=== PATIENT | male | born 1995 | race Caucasian/White ===

== ENCOUNTER 2018-05-29 10:57 | Emergency (ER) | payer MEDICAID ==
[2018-05-29 11:08] VITALS: BP 123/76
--- NOTE | 2018-05-29 11:44 | XRAY Report ---
Reason: injury Procedure Date: 05/29/2018 Accession Number: [id number] / [id number] Procedure: XR - Foot 3 View LT CPT Code: FULL RESULT: EXAM: LEFT FOOT RADIOGRAPHY EXAM DATE: 05/29/2018 11:12 AM. CLINICAL HISTORY: Injury after fall on the heel of the foot. Pain. COMPARISON: No prior images of the left foot. Right foot radiographs 01/03/2011 XR FOOT COMPLETE MIN 3 VIEWS 01/03/2011 9:29 PM. TECHNIQUE: 3 nonweightbearing views. FINDINGS: Bones: Normal. No fractures or bone lesions. Joints: Normal. No subluxations. Soft Tissues: Normal. No soft tissue swelling. IMPRESSION: Normal foot radiography. No acute osseous abnormality. RADIA
[2018-05-29] MEDS ORDERED: HYDROcod/ACETAM 5/325 MG TABLET PO STA (12:12)
--- NOTE | 2018-05-29 12:13 | ED Physician Documentation ---
PD HPI LOWER EXT INJURY - Stated complaint Stated Complaint: L FOOT PAIN - Chief complaint Chief Complaint: Trauma Ext - History obtained from History obtained from: Patient - History of Present Illness PD HPI LOW EXT INJURY LOCATION: Left, Foot Type of injury: Fall (He was running yesterday and kind of jumped off a fence and landed on the left heel and has moderate to severe pain there with difficulty walking. No other injuries.) Review of Systems Constitutional: reports: Reviewed and negative Cardiac: reports: Reviewed and negative Respiratory: reports: Reviewed and negative PD PAST MEDICAL HISTORY - Past Medical History Cardiovascular: None Respiratory: None Endocrine/Autoimmune: None GI: None : None HEENT: None Psych: Anxiety Musculoskeletal: None Derm: None - Past Surgical History Past Surgical History: No - Present Medications Home Medications: Ambulatory Orders Medication Instructions Recorded Confirmed Hydrocodone/Acetaminophen 1 - 2 each PO Q6H PRN #10 tablet 05/29/18 [Hydrocodon-Acetaminophen 5-325] - Allergies Allergies/Adverse Reactions: Allergies Allergy/AdvReac Type Severity Reaction Status Date / Time No Known Drug Allergies Allergy Verified 05/29/18 11:09 - Social History Does the pt smoke?: No Smoking Status: Current some day smoker Does the pt drink ETOH?: No Does the pt have substance abuse?: No - Immunizations Immunizations are current?: No Immunizations: TDAP >10years/unknown - POLST Patient has POLST: No PD ED PE NORMAL - Vitals Vital signs reviewed: Yes - General General: Alert and oriented X 3, No acute distress - Extremities Extremities: Other (Focally tender over the left calcaneus without deformity or limited range of motion. No Achilles or plantar fascia tenderness.) - Neuro Neuro: Alert and oriented X 3, Normal speech Results - Vitals Vitals: Vital Signs - 24 hr 05/29/18 11:05 Temperature 37 C Heart Rate 68 Respiratory 16 Rate Blood Pressure 123/76 O2 Saturation 98 Oxygen O2 Source Room air - Rads (name of study) Xrays of Left foot and calcaneus Radiology: EMP read contemporaneously (negative) Departure - Departure Disposition: 01 Home, Self Care Clinical Impression: Contusion of left foot Condition: Good Record reviewed to determine appropriate education?: Yes Instructions: ED Contusion Foot Prescriptions: Hydrocodone/Acetaminophen [Hydrocodon-Acetaminophen 5-325] 1 - 2 each PO Q6H PRN #10 tablet PRN Reason: pain Comments: Recheck with your primary care physician in 1 week if not better, return for new or worsening symptoms. Do not drink or drive while taking narcotic pain medication. Note that many narcotic pain relievers also contain Tylenol/acetaminophen. Please ensure that your total dose of acetaminophen from all sources does not exceed 3 g (3000 mg) per day. You may get constipated while on this medication. Take a stool softener such as Colace twice a day while you are on it. Also add an [id number] laxative such as senna or MiraLAX on any day that you do not have a bowel movement. If you received a narcotic pain medication or sedative while in the emergency department, do not drive for the next 24 hours. Discharge Date/Time: 05/29/18 13:01
--- NOTE | 2018-05-29 12:41 | XRAY Report ---
Reason: foot inj Procedure Date: 05/29/2018 Accession Number: [id number] / [id number] Procedure: XR - Calcaneus LT CPT Code: FULL RESULT: EXAM: LEFT ANKLE RADIOGRAPHY EXAM DATE: 05/29/2018 12:21 PM. CLINICAL HISTORY: Foot injury. Fall. Left heel pain. COMPARISON: None. TECHNIQUE: 3 views. FINDINGS: Bones: Normal. No fractures or bone lesions. Joints: Normal. No effusion. No subluxations. The ankle mortise is normally aligned. Soft Tissues: Soft tissue edema. No radiopaque foreign bodies. IMPRESSION: 1. No acute osseous abnormalities. RADIA
== END 2018-05-29 13:01 | disposition home or self-care (01) ==
LOC: ED 10:57
DX: F17.200 Nicotine dependence, unspecified, uncomplicated (principal); S90.32XA Contusion of left foot, initial encounter; X50.9XXA Other and unspecified overexertion or strenuous movements or postures, initial encounter; Y93.39 Activity, other involving climbing, rappelling and jumping off
CPT/HCPCS: 73630; 73650; 99283; A9270

== ENCOUNTER 2018-06-18 16:41 | Outpatient (CLI) | payer MEDICAID | END 2018-06-18 16:42 | disposition EMS.NT | LOC: EMS 16:41 | PROVIDERS: ATTEND Surgery | DX: Z03.89 Encounter for observation for other suspected diseases and conditions ruled out (principal) ==

== ENCOUNTER 2018-10-31 13:00 | Emergency (ER) | payer MEDICAID ==
[2018-10-31 13:08] VITALS: BP 121/79
--- NOTE | 2018-10-31 13:15 | ED Physician Documentation ---
PD HPI UPPER EXT INJURY - Stated complaint Stated Complaint: HAND INJURY - Chief complaint Chief Complaint: Ext Problem - History obtained from History obtained from: Patient - History of Present Illness Location: Right, Hand Type of injury: Fall Where injury occurred: Home Timing - onset: Last night Timing - duration: Days (1) Timing - details: Abrupt onset Pain level max: 7 Pain level now: 5 Improved by: Rest, Ice, Immobilization Worsened by: Moving, Palpating Associated symptoms: Swelling, Discolored (Ecchymosis). No: Weakness, Numbness, Tingling Contributing factors: No: Anticoagulated Recently seen: Not recently seen - Additonal information Additional information: Patient is right-handed. States fell last night and injured the hand Review of Systems Neurologic: denies: Focal weakness, Numbness PD PAST MEDICAL HISTORY - Past Medical History Cardiovascular: None Respiratory: None Endocrine/Autoimmune: None GI: None : None HEENT: None Psych: Anxiety Musculoskeletal: None Derm: None - Past Surgical History Past Surgical History: No - Present Medications Home Medications: Ambulatory Orders Medication Instructions Recorded Confirmed Hydrocodone/Acetaminophen 1 - 2 each PO Q6H PRN #10 tablet 05/29/18 [Hydrocodon-Acetaminophen 5-325] Hydrocodone/Acetaminophen 1 - 2 each PO Q6H PRN #10 tablet 10/31/18 [Hydrocodon-Acetaminophen 5-325] Ibuprofen [Motrin] 800 mg PO Q8H PRN #30 tablet 10/31/18 - Allergies Allergies/Adverse Reactions: Allergies Allergy/AdvReac Type Severity Reaction Status Date / Time No Known Drug Allergies Allergy Verified 10/31/18 13:07 - Social History Does the pt smoke?: No Smoking Status: Never smoker Does the pt drink ETOH?: No Does the pt have substance abuse?: No - Immunizations Immunizations are current?: No Immunizations: TDAP >10years/unknown - POLST Patient has POLST: No PD ED PE NORMAL - Vitals Vital signs reviewed: Yes - General General: Alert and oriented X 3, No acute distress - HEENT HEENT: Moist mucous membranes - Derm Derm: Warm and dry - Extremities Extremities: Other (Dorsum of the right hand is mildly ecchymotic. Tender to palpation over the fourth and fifth metacarpals. No gross deformity. Full range of motion present. Neurovascular intact. Normal examination of the wrist and forearm) - Neuro Neuro: Alert and oriented X 3 Results - Vitals Vitals: Vital Signs - 24 hr 10/31/18 13:04 Temperature 36.9 C Heart Rate 73 Respiratory 16 Rate Blood Pressure 121/79 O2 Saturation 99 Oxygen O2 Source Room air - Rads (name of study) Right hand x-ray Radiology: Prelim report reviewed, EMP read contemporaneously, See rad report (Right fifth metacarpal fracture. Acute versus chronic) Procedures - Splint (location) Right hand Splint applied by: Tech Type of splint: Fiberglass, Ulnar gutter Other: Patient tolerated well, No complications, Neurovascular intact, Sling provided PD MEDICAL DECISION MAKING - ED course Complexity details: reviewed results, re-evaluated patient, considered differential, d/w patient ED course: Patient with a right fifth metacarpal fracture. Placed on a ulnar gutter splint. Given a sling. We will follow-up with orthopedics. Neurovascular intact patient counseled regarding signs and symptoms for which I believe and urgent re-evaluation would be necessary. Patient with good understanding of and agreement to plan and is comfortable going home at this time This document was made in part using voice recognition software. While efforts are made to proofread this document, sound alike and grammatical errors may occur. Departure - Departure Disposition: 01 Home, Self Care Clinical Impression: Fracture of fifth metacarpal bone of right hand Qualifiers: Encounter type: initial encounter Fracture type: closed Metacarpal location: unspecified portion of metacarpal Fracture alignment: nondisplaced Qualified Code(s): S62.306A - Unspecified fracture of fifth metacarpal bone, right hand, initial encounter for closed fracture Condition: Good Instructions: ED Fx Hand Closed Follow-Up: [facility] [Provider Group] - Within 1 week Prescriptions: Hydrocodone/Acetaminophen [Hydrocodon-Acetaminophen 5-325] 1 - 2 each PO Q6H PRN #10 tablet PRN Reason: pain Ibuprofen [Motrin] 800 mg PO Q8H PRN #30 tablet PRN Reason: PAIN &/OR FEVER Comments: Follow-up with orthopedics within 1 week for repeat evaluation. Wear the splint until then. You can use the sling for comfort. Elevate the hand. Ice may help as well. Do not drink alcohol or drive while on narcotic pain medicine. Note that many narcotic pain relievers also contain tylenol/acetaminophen. Please ensure that your total dose of acetaminophen from all sources does not exceed 3 grams (3000mg) per day. You may constipated on this medication, take a stool softener such as "Colace" twice a day while you are on it. Also recommend a bree-yjb-deuezjk laxative such as senna or MiraLAX any day that you do not have a bowel movement. If you received narcotic pain medication in the emergency department, do not drive or operate machinery for the next 24 hours. Discharge Date/Time: 10/31/18 14:42
--- NOTE | 2018-10-31 13:48 | XRAY Report ---
Reason: injury and now having pain Procedure Date: 10/31/2018 Accession Number: [id number] / [id number] Procedure: XR - Hand 3 View RT CPT Code: FULL RESULT: EXAM: RIGHT HAND RADIOGRAPHY EXAM DATE: 10/31/2018 01:31 PM. CLINICAL HISTORY: Injury and now having pain. COMPARISON: None. TECHNIQUE: 3 views. FINDINGS: Bones: Right fifth metacarpal fracture chronic versus acute Joints: Normal. No subluxations. Soft Tissues: Mild soft tissue swelling. IMPRESSION: Right fifth metacarpal fracture chronic versus acute RADIA
[2018-10-31] MEDS ORDERED: HYDROcod/ACETAM 5/325 MG TABLET PO STA (14:15)
== END 2018-10-31 14:42 | disposition home or self-care (01) ==
LOC: ED 13:00
DX: S62.306A Unspecified fracture of fifth metacarpal bone, right hand, initial encounter for closed fracture (principal); W19.XXXA Unspecified fall, initial encounter
CPT/HCPCS: 29125; 73130; 99283; A9270

== ENCOUNTER 2018-12-16 08:00 | Outpatient (CLI) | payer MEDICAID ==
[2018-12-16 18:26] LABS: BASOPHILS % (AUTO) 0.5 %; EOSINOPHILS # (AUTO) 0.2 10^3/uL (0.0-0.7); LYMPHOCYTES # (AUTO) 1.7 10^3/uL (1.5-3.5); LYMPHOCYTES % (AUTO) 27.1 %; MEAN CORPUSCULAR HEMOGLOBIN 27.3 pg (27.0-31.0); MEAN CORPUSCULAR HGB CONC 31.5 g/dL (32.0-36.0); MEAN CORPUSCULAR VOLUME 86.5 fL (80.0-94.0); MEAN PLATELET VOLUME 9.1 fL (7.4-11.4); MONOCYTES # (AUTO) 0.5 10^3/uL (0.0-1.0); MONOCYTES % (AUTO) 7.4 %; NEUTROPHILS # (AUTO) 3.9 10^3/uL (1.5-6.6); NEUTROPHILS % (AUTO) 61.5 %; PLT - PLATELET COUNT 319 10^3/uL (130-450); RED CELL DISTRIBUTION WIDTH 12.3 % (12.0-15.0); WHITE BLOOD COUNT 6.3 x10^3/uL (4.8-10.8)
[2018-12-16 19:16] LABS: ALBUMIN 4.7 g/dL (3.2-5.5); ALBUMIN/GLOBULIN RATIO 1.6 (1.0-2.2); BILIRUBIN,TOTAL 0.7 mg/dL (0.2-1.0); CALCIUM 9.6 mg/dL (8.5-10.3); CREATININE 0.8 mg/dL (0.6-1.2); TOTAL PROTEIN 7.7 g/dL (6.7-8.2)
[2018-12-17 11:57] LABS: HEPATITIS C ANTIBODY NON-REACTIVE (NON-REACTIVE)
[2018-12-17 14:43] LABS: HIV AG/AB 4TH GEN NON-REACTIVE (NON-REACTIVE)
[2018-12-19 11:29] LABS: HSV 1 IGG TYPE SPECIFIC AB >58.00 index; HSV 2 IGG TYPE SPECIFIC AB <0.90 index
== END 2018-12-16 23:59 | disposition home or self-care (01) ==
LOC: LAB.N 08:00
PROVIDERS: ATTEND Physician Assistant Medical
DX: F10.11 Alcohol abuse, in remission (principal); Z81.1 Family history of alcohol abuse and dependence; Z72.0 Tobacco use; Z91.89 Other specified personal risk factors, not elsewhere classified
CPT/HCPCS: 36415; 80053; 81599; 82784; 85025; 86592; 86695; 86696; 86803; 87389

== ENCOUNTER 2018-12-23 10:55 | Emergency (ER) | payer MEDICAID ==
[2018-12-23 11:05] VITALS: BP 141/81
--- NOTE | 2018-12-23 12:28 | ED Physician Documentation ---
PD HPI HEENT - Stated complaint Stated Complaint: JAW PX - Chief complaint Chief Complaint: Heent - History obtained from History obtained from: Patient - History of Present Illness Timing - onset: How many years ago (2) Timing - duration: Years (2) Timing - details: Gradual onset, Still present Location: Tooth Improves: Nothing Worsens: Everything Associated symptoms: Fever (intermittently feels feverish) Similar symptoms before: Diagnosis (impacted wisdom teeth) Recently seen: Clinic (dentist) - Additional information Additional information: This is a 23-year-old presents with complaints that he is been having jaw pain for over a year and waking up to blood in his mouth occasionally for a couple of years. He was seen by dentist 2 or 3 months ago and had x-rays taken and told that his wisdom teeth were completely impacted on the bottom and upper but he was not clear on what the follow-up would be to resolve that problem. He takes ibuprofen 800 mg "occasionally" for the pain but it does nothing to help and he is also tried Vicodin which does nothing for the pain. He has felt feverish. He occasionally has a sore throat but does admit to a lot of postnasal drip. He says the pain is at the angle of his jaw bilaterally and is so severe it shoots up past his ears and into the temples bilaterally. Review of Systems Constitutional: reports: Fever (subjective) Nose: reports: Congestion, Other (Postnasal drip) Throat: reports: Dental pain / toothache, Sore throat PD PAST MEDICAL HISTORY - Past Medical History Cardiovascular: None Respiratory: None Endocrine/Autoimmune: None GI: None : None HEENT: None Psych: Anxiety Musculoskeletal: None Derm: None - Past Surgical History Past Surgical History: No - Present Medications Home Medications: Ambulatory Orders Medication Instructions Recorded Confirmed Hydrocodone/Acetaminophen 1 - 2 each PO Q6H PRN #10 tablet 05/29/18 [Hydrocodon-Acetaminophen 5-325] Hydrocodone/Acetaminophen 1 - 2 each PO Q6H PRN #10 tablet 10/31/18 [Hydrocodon-Acetaminophen 5-325] Ibuprofen [Motrin] 800 mg PO Q8H PRN #30 tablet 10/31/18 Naproxen 375 mg PO BID #30 tablet 12/23/18 - Allergies Allergies/Adverse Reactions: Allergies Allergy/AdvReac Type Severity Reaction Status Date / Time No Known Drug Allergies Allergy Verified 12/23/18 11:03 - Social History Does the pt smoke?: No Smoking Status: Never smoker Does the pt drink ETOH?: No Does the pt have substance abuse?: No - Immunizations Immunizations are current?: No Immunizations: TDAP >10years/unknown - POLST Patient has POLST: No PD ED PE NORMAL - Vitals Vital signs reviewed: Yes - General General: Alert and oriented X 3, No acute distress, Well developed/nourished - HEENT HEENT: Atraumatic, PERRL, EOMI, Ears normal, Moist mucous membranes, Pharynx benign, Other (The wisdom teeth are seen and wrapped in posteriorly on the mandible. Do not see any erupting teeth on the posterior maxilla. There is no swelling. He has full opening of his jaw. The ears both have large guages in the lobes) - Neck Neck: No adenopathy - Neuro Neuro: Alert and oriented X 3, Other (No gross neurological deficits.) Results - Vitals Vitals: Oxygen O2 Source Room air PD MEDICAL DECISION MAKING - ED course Complexity details: d/w patient ED course: No indication of infection at this time. Treatment with anti-inflammatories and absolutely imperative to follow-up with a dentist for wisdom tooth removal. Departure - Departure Disposition: 01 Home, Self Care Clinical Impression: Jaw pain, non-TMJ Condition: Good Instructions: ED Tooth Pain Follow-Up: Jey Epstein PA-C [Primary Care Provider] - Prescriptions: Naproxen 375 mg PO BID #30 tablet Comments: It is absolutely imperative that you contact the dentist about referral for wisdom tooth extraction. Your pain will not improve without removing the wisdom teeth. You can take naproxen twice a day as prescribed if needed. Discharge Date/Time: 12/23/18 12:47
== END 2018-12-23 12:47 | disposition home or self-care (01) ==
LOC: ED 10:55
DX: K08.89 Other specified disorders of teeth and supporting structures (principal); R68.84 Jaw pain
CPT/HCPCS: 99282

== ENCOUNTER 2020-01-02 06:58 | Emergency (ER) | payer MEDICAID ==
--- NOTE | 2020-01-02 07:12 | ED Physician Documentation ---
PD HPI UPPER EXT INJURY - Stated complaint Stated Complaint: LT SHOULDER INJ - Chief complaint Chief Complaint: Trauma Ext - History obtained from History obtained from: Patient - History of Present Illness Location: Left, Shoulder Type of injury: Fall (he was skateboarding and fell, landing onto left shoulder. Denies injury to head, neck, chest, abd.) Where injury occurred: Street Timing - onset: Today (shortly [employer]) Worsened by: Moving (lifting left arm or flex/extension. Not much pain with rotational movement.), Palpating Associated symptoms: No: Weakness, Numbness Similar symptoms before: Has not had sx before Review of Systems Constitutional: denies: Fever Nose: denies: Rhinorrhea / runny nose, Congestion Respiratory: denies: Cough Musculoskeletal: reports: Joint pain (just left shoulder). denies: Neck pain, Back pain Neurologic: denies: Headache, Head injury PD PAST MEDICAL HISTORY - Past Medical History Cardiovascular: None Respiratory: None Endocrine/Autoimmune: None GI: None : None HEENT: None Psych: Anxiety Musculoskeletal: None Derm: None - Past Surgical History Past Surgical History: No - Present Medications Home Medications: Ambulatory Orders Medication Instructions Recorded Confirmed Hydrocodone/Acetaminophen 1 - 2 each PO Q6H PRN #10 tablet 05/29/18 [Hydrocodon-Acetaminophen 5-325] Hydrocodone/Acetaminophen 1 - 2 each PO Q6H PRN #10 tablet 10/31/18 [Hydrocodon-Acetaminophen 5-325] Ibuprofen [Motrin] 800 mg PO Q8H PRN #30 tablet 10/31/18 Naproxen 375 mg PO BID #30 tablet 12/23/18 - Allergies Allergies/Adverse Reactions: Allergies Allergy/AdvReac Type Severity Reaction Status Date / Time No Known Drug Allergies Allergy Verified 01/02/20 07:07 - Social History Does the pt smoke?: No Smoking Status: Never smoker Does the pt drink ETOH?: No Does the pt have substance abuse?: No - Immunizations Immunizations are current?: No Immunizations: TDAP >10years/unknown - POLST Patient has POLST: No PD ED PE NORMAL - Vitals Vital signs reviewed: Yes - General General: Alert and oriented X 3, No acute distress (guarding ROM of the left arm, with it splinted to his side.), Well developed/nourished - HEENT HEENT: Atraumatic - Neck Neck: Supple, no meningeal sign, No bony TTP - Derm Derm: Normal color, Warm and dry - Extremities Extremities: Other (left shoulder with small abrasion at posterior aspect. No noted deformity. Tender with some swelling at AC area. No step off noted. Pain with passive distraction of the shoulder downward. ). No: Normal ROM s pain - Neuro Neuro: No motor deficit, No sensory deficit Results - Vitals Vitals: Vital Signs - 24 hr 01/02/20 01/02/20 07:00 08:25 Temperature 36.6 C 36.3 C L Heart Rate 62 60 Respiratory 16 18 Rate Blood Pressure 126/75 122/67 O2 Saturation 99 99 Oxygen O2 Source Room air - Rads (name of study) left shoulder Radiology: Prelim report reviewed (no fractures), See rad report PD MEDICAL DECISION MAKING - ED course Complexity details: reviewed results (no fractures on xray), considered differential (consider fracture vs AC strain from just contusion. ), d/w patient Departure - Departure Disposition: 01 Home, Self Care Clinical Impression: Fall from skateboard Qualifiers: Encounter type: initial encounter Qualified Code(s): V00.131A - Fall from skateboard, initial encounter AC separation Qualifiers: Encounter type: initial encounter Laterality: left Qualified Code(s): S43.102A - Unspecified dislocation of left acromioclavicular joint, initial encounter Condition: Stable Record reviewed to determine appropriate education?: Yes Instructions: ED Sprain AC Joint Follow-Up: Oleg Mccain MD [Provider Admit Priv/Credential] - Comments: Do not see any fractures on your x-ray. It seems likely you have injured the ligaments that hold the collarbone to the part of the scapula. This is called the AC joint. This should heal up with limited motion of the shoulder and support of the arm with a sling. No overhead reaching, push pull, lifting with the arm for 2 to 3 weeks. This will take about a month to heal. Tylenol or ibuprofen as needed for pains. Consider an anti-inflammatory such as ibuprofen regularly 3 times a day for the first week or so and add Tylenol every 4-6 hours if needed. Most of the pain relief will be with the sling and limited motion. Discharge Date/Time: 01/02/20 08:41
[2020-01-02] MEDS ORDERED: ACETAMINOPHEN 325 MG TABLET PO STA (07:25)
[2020-01-02 08:26] VITALS: BP 122/67
--- NOTE | 2020-01-02 08:38 | XRAY Report ---
PROCEDURE: Shoulder 3 View LT INDICATIONS: Fall/injury from skateboarding, swelling pain TECHNIQUE: 3 views of the shoulder were acquired. COMPARISON: None. FINDINGS: Bones: No fractures or dislocations. No suspicious bony lesions. Visualized ribs appear intact. Soft tissues: No suspicious soft tissue calcifications. IMPRESSION: No acute findings. If the patient's pain or other symptoms persist, consider further joe luation with MRI. . Reviewed by: Mateusz Bennett MD on 01/02/2020 8:37 AM PDT Approved by: Mateusz Bennett MD on 01/02/2020 8:37 AM PDT Station ID: [id number]
== END 2020-01-02 08:41 | disposition home or self-care (01) ==
LOC: ED 06:58
DX: S43.102A Unspecified dislocation of left acromioclavicular joint, initial encounter (principal); S40.212A Abrasion of left shoulder, initial encounter; V00.131A Fall from skateboard, initial encounter; Y93.51 Activity, roller skating (inline) and skateboarding; Y92.410 Unspecified street and highway as the place of occurrence of the external cause
CPT/HCPCS: 73030; 99282; 99283; A9270

== ENCOUNTER 2022-04-06 20:29 | Outpatient (CLI) | payer MEDICAID | END 2022-04-06 20:30 | disposition critical access hospital (66) | LOC: EMS 20:29 | DX: T50.901A Poisoning by unspecified drugs, medicaments and biological substances, accidental (unintentional), initial encounter (principal); R55 Syncope and collapse; R06.89 Other abnormalities of breathing; R03.0 Elevated blood-pressure reading, without diagnosis of hypertension; R11.10 Vomiting, unspecified | CPT/HCPCS: A0425; A0429; A0999 ==

== ENCOUNTER 2022-04-06 20:50 | Emergency (ER) | payer MEDICAID ==
[2022-04-06] MEDS ORDERED: SODIUM CHLORIDE 0.9% 1,000 ML IV STA (20:54)
[2022-04-06] MEDS ORDERED: ONDANSETRON 4 MG/2 ML VIAL IVP STA (20:54)
[2022-04-06 21:06] LABS: BASOPHILS % (AUTO) 0.3 %; EOSINOPHILS # (AUTO) 0.2 10^3/uL (0.0-0.7); HCT - HEMATOCRIT 43.4 % (42.0-52.0); LYMPHOCYTES # (AUTO) 2.6 10^3/uL (1.5-3.5); LYMPHOCYTES % (AUTO) 29.2 %; MEAN CORPUSCULAR HEMOGLOBIN 27.2 pg (27.0-31.0); MEAN CORPUSCULAR HGB CONC 32.3 g/dL (32.0-36.0); MEAN CORPUSCULAR VOLUME 84.4 fL (80.0-94.0); MEAN PLATELET VOLUME 8.4 fL (7.4-11.4); MONOCYTES # (AUTO) 0.5 10^3/uL (0.0-1.0); MONOCYTES % (AUTO) 5.9 %; NEUTROPHILS # (AUTO) 5.6 10^3/uL (1.5-6.6); NEUTROPHILS % (AUTO) 62.2 %; PLT - PLATELET COUNT 307 10^3/uL (130-450); RED BLOOD COUNT 5.14 10^6/uL (4.70-6.10); RED CELL DISTRIBUTION WIDTH 12.2 % (12.0-15.0)
[2022-04-06 21:20] LABS: ALBUMIN 4.5 g/dL (3.2-5.5); ALBUMIN/GLOBULIN RATIO 1.6 (1.0-2.2); ALKALINE PHOSPHATASE 53 IU/L (42-121); ALT ALANINE AMINOTRANSFERASE 17 IU/L (10-60); AST ASPARTATE AMINOTRANSFERASE 24 IU/L (10-42); BILIRUBIN,TOTAL 0.5 mg/dL (0.2-1.0); BUN - BLOOD UREA NITROGEN 18 mg/dL (6-20); CALCIUM 8.7 mg/dL (8.5-10.3); CARBON DIOXIDE - CO2 28 mmol/L (21-32); CHLORIDE 100 mmol/L (101-111); ETOH - ETHANOL < 5.0 mg/dL; GFR - MDRD 89 (>89); GLUCOSE 177 mg/dL (70-100); LIPASE 30 U/L (22-51); POTASSIUM 3.4 mmol/L (3.5-5.0); SODIUM 137 mmol/L (135-145); TOTAL PROTEIN 7.3 g/dL (6.7-8.2)
--- NOTE | 2022-04-06 23:15 | ED Physician Documentation ---
History of Present Illness - Stated complaint Stated Complaint: SUBSTANCE INGESTION - Chief complaint Chief Complaint: MHE - History obtained from History obtained from: Patient, EMS - Additonal information Additional information: The patient is brought to the emergency department by EMS after smoking A "blue". The medics report that this is "fake oxycodone" which is actually fentanyl. The patient had a syncopal episode as reported by a friend who is on scene, and the friend performed CPR for a minute or so until the patient came back around on his own. The medics state that the patient has been a little drowsy but that he has been stable with good oxygen saturation and normal blood sugar. They have not given him any Narcan. The patient states he did not take anything else. The initial EMS report was that the patient has had an overdose, but they state that this was incorrect information now. The patient states that he feels a little nauseated but otherwise okay. No other complaints at this time. Review of Systems Constitutional: reports: Reviewed and negative Eyes: reports: Reviewed and negative Ears: reports: Reviewed and negative Nose: reports: Reviewed and negative Throat: reports: Reviewed and negative Cardiac: reports: Reviewed and negative Respiratory: reports: Reviewed and negative GI: reports: Nausea : reports: Reviewed and negative Skin: reports: Reviewed and negative Musculoskeletal: reports: Reviewed and negative Neurologic: reports: Reviewed and negative Psychiatric: reports: Reviewed and negative Endocrine: reports: Reviewed and negative Immunocompromised: reports: Reviewed and negative PD PAST MEDICAL HISTORY - Past Medical History Past Medical History: Yes Cardiovascular: None Respiratory: None Endocrine/Autoimmune: None GI: None : None HEENT: None Psych: Depression, Anxiety Musculoskeletal: None Derm: None - Past Surgical History Past Surgical History: Yes General: Bowel surgery - Present Medications Home Medications: Ambulatory Orders Medication Instructions Recorded Confirmed No Known Home Medications 04/06/22 04/06/22 - Allergies Allergies/Adverse Reactions: Allergies Allergy/AdvReac Type Severity Reaction Status Date / Time No Known Drug Allergies Allergy Verified 04/06/22 21:03 - Social History Does the pt smoke?: No Smoking Status: Never smoker Does the pt drink ETOH?: Yes ETOH Use: Liquor Does the pt have substance abuse?: Yes Substance Use and Type: Other - Immunizations Immunizations are current?: Yes Immunizations: TDAP >10years/unknown - POLST Patient has POLST: No PD ED PE NORMAL - Vitals Vital signs reviewed: Yes - General General: Alert and oriented X 3, No acute distress, Other (Somewhat disheveled, but otherwise well-appearing) - HEENT HEENT: Atraumatic, PERRL, EOMI, Moist mucous membranes - Neck Neck: Supple, no meningeal sign - Cardiac Cardiac: RRR, No murmur, Strong equal pulses - Respiratory Respiratory: No respiratory distress, Clear bilaterally - Abdomen Abdomen: Soft, Non tender, Non distended - Derm Derm: Warm and dry - Extremities Extremities: No deformity - Neuro Neuro: Alert and oriented X 3 - Psych Psych: Normal mood, Normal affect Results - Vitals Vitals: Oxygen O2 Source Room air Oxygen Flow Rate 2 - Labs Labs: Laboratory Tests 04/06/22 04/06/22 21:01 21:01 WBC 9.0 RBC 5.14 Hgb 14.0 Hct 43.4 MCV 84.4 MCH 27.2 MCHC 32.3 RDW 12.2 Plt Count 307 MPV 8.4 Neut # (Auto) 5.6 Lymph # (Auto) 2.6 [place] # (Auto) 0.5 Eos # (Auto) 0.2 Baso # (Auto) 0.0 Absolute Nucleated RBC 0.00 Nucleated RBC % 0.0 Sodium 137 Potassium 3.4 L Chloride 100 L Carbon Dioxide 28 Anion Gap 9.0 BUN 18 Creatinine 1.0 Estimated GFR (MDRD) 89 Glucose 177 H Calcium 8.7 Total Bilirubin 0.5 AST 24 ALT 17 Alkaline Phosphatase 53 Total Protein 7.3 Albumin 4.5 Globulin 2.8 Albumin/Globulin Ratio 1.6 Lipase 30 Ethyl Alcohol < 5.0 PD Medical Decision Making - ED course Complexity details: reviewed results, re-evaluated patient, considered differential, d/w patient ED course: The patient was observed in the emergency department and given a liter of normal saline. His labs, including CBC and your abdominal panel, were unremarkable. The patient was feeling much better on reevaluation and I felt he was stable for discharge. We have discussed getting help with his substance abuse. We have also discussed the usual indications for return. Departure - Departure Disposition: 01 Home, Self Care Clinical Impression: Substance abuse Condition: Stable Instructions: ED Narcotic Abuse Comments: Your laboratory studies look good, and there is no evidence at this point of serious effects of the drug that you took in an acute sense. Please consider getting help with your drug use when you are ready. Discharge Date/Time: 04/06/22 23:58
[2022-04-06] MEDS ORDERED: PROMETHAZINE INJ 12.5 MG in SODIUM CHLORIDE 0.9% 50 ML IV STA (23:17)
[2022-04-06] MEDS ORDERED: PROMETHAZINE 25 MG/1 ML VIAL ONE (23:19)
[2022-04-07] VITALS: BP 150/98
== END 2022-04-06 23:58 | disposition home or self-care (01) ==
LOC: EDUNIT# → ED 20:50
DX: F19.10 Other psychoactive substance abuse, uncomplicated (principal)
CPT/HCPCS: 36415; 80053; 80320; 83690; 85025; 96365; 96375; 99283; 99285; J7040